=== PATIENT | female | born 1990 | race African-American/Black ===

== ENCOUNTER 2016-11-11 10:34 | Emergency (ER) | payer MEDICAID ==
[~2016-11-11] VITALS: Ht 157.5 cm; Wt 63.0 kg
[2016-11-11 13:05] VITALS: BP 111/48
== END 2016-11-11 15:52 | disposition home or self-care (01) ==
LOC: ER 10:34
DX: O20.8 Other hemorrhage in early pregnancy (principal); K59.00 Constipation, unspecified; Z3A.12 12 weeks gestation of pregnancy
CPT/HCPCS: 36415; 76801; 84702

== ENCOUNTER 2017-08-20 08:35 | Emergency (ER) | payer MEDICAID ==
[~2017-08-20] VITALS: Ht 157.5 cm; Wt 77.1 kg
[2017-08-20 09:16] LABS: Urine Bilirubin Negative (Negative); Urine Blood Negative /uL (Negative); Urine Color Yellow (Yellow); Urine Glucose Normal (Normal); Urine Ketone Negative (Negative); Urine Nitrite Negative (Negative); Urine RBC 2 /hpf (0 - 4); Urine Squamous Epithelial Cell FEW /hpf (<5); Urine Urobilinogen Normal (Negative)
[2017-08-20 09:33] LABS: Basophils # (auto) 0 uL; Basophils % (auto) 0.3 % (0.0-2.0); Eosinophils # (auto) 0.1 uL; Eosinophils % (auto) 1.3 % (0.0-7.0); Hemoglobin 14.6 g/dL (12.2-16.2); Lymphocytes # (auto) 2.3 uL; Monocytes # (auto) 0.5 uL; Neutrophils # (auto) 3.2 uL; White Blood Cell 6.1 10^3/uL (4.4-10.8)
[2017-08-20 09:35] LABS: Hematocrit 43.6 % (36.0-46.0); Lymphocytes % (auto) 37.7 % (10.0-50.0); Mean Corpuscular Hemoglobin 26.6 pg (28.0-32.0); Mean Corpuscular Hgb Conc. 33.4 g/dL (32.0-36.0); Mean Corpuscular Volume 79.6 fL (80.0-100.0); Mean Platelet Volume 7.4 fL (6.9-10.8); Monocytes % (auto) 7.6 % (0.0-12.0); Neutrophils % (auto) 53.1 % (37.0-80.0); Platelet Count (auto) 398 10^3/uL (140-450); Red Cell Distribution Width 15.9 % (11.8-14.3)
[2017-08-20] MEDS ORDERED: LORazepam 2MG/ML-1ML VIAL IV ONE (09:45)
[2017-08-20 09:59] LABS: Albumin 4.3 g/dL (3.4-5.0); Alkaline Phosphatase 89 U/L (45-117); Anion Gap 11 (5-15); Aspartate Aminotransferase 11 U/L (15-37); Bilirubin, Total 0.3 mg/dL (0.2-1.0); Blood Urea Nitrogen 12 mg/dL (7-18); Calcium 9.8 mg/dL (8.5-10.1); Carbon Dioxide 18 mmol/L (21-32); Chloride 104 mmol/L (98-107); GFR African American 103 mL/min; GFR Non-African American 85 mL/min; Glucose 120 mg/dL (74-106); Potassium 3.5 mmol/L (3.5-5.1); Sodium 133 mmol/L (136-145); Total Protein 9.2 g/dL (6.4-8.2)
[2017-08-20 11:05] LABS: Hypochromia Slight; Microcytosis Slight; Platelet Estimate Adequate
[2017-08-20 11:06] LABS: Tear Drop Cells FEW
[2017-08-20] MEDS ORDERED: cefTRIAXone 1GM/50ML D5W 50 ML IV ONE (11:45)
[2017-08-20 12:04] VITALS: BP 117/69
== END 2017-08-20 13:37 | disposition home or self-care (01) ==
LOC: ER 08:35 → EDUNIT# 08:35 → ER 13:37
DX: R07.9 Chest pain, unspecified (principal); F41.8 Other specified anxiety disorders; M54.12 Radiculopathy, cervical region; M62.838 Other muscle spasm
CPT/HCPCS: 36415; 71020; 72125; 80053; 80307; 81001; 81025; 83735; 84484; 84702; 85025; 93005; 94761; 96365; 96375; 99285; J0696; J2060

== ENCOUNTER 2021-04-08 13:16 | Emergency (ER) | payer MEDICAID ==
[~2021-04-08] VITALS: Ht 157.5 cm; Wt 81.6 kg
[2021-04-08 13:48] LABS: Basophils # (auto) 0.1 10 ^3/uL (0-0.2); Eosinophils # (auto) 0.1 10 ^3/uL (0-0.8); Lymphocytes # (auto) 2.1 10 ^3/uL (0.4-5.4); Mean Corpuscular Hemoglobin 22.1 pg (28.0-32.0); Monocytes # (auto) 0.4 10 ^3/uL (0-1.3); Nucleated Red Blood Cells % 0.1 %; White Blood Cell 7.7 10^3/uL (4.4-10.8)
[2021-04-08 13:49] LABS: Basophils % (auto) 1.6 % (0.0-2.0); Eosinophils % (auto) 1.5 % (0.0-7.0); Hemoglobin 11.2 g/dL (12.2-16.2); Lymphocytes % (auto) 27.7 % (10.0-50.0); Mean Corpuscular Volume 69.2 fL (80.0-100.0); Monocytes % (auto) 5.8 % (0.0-12.0); Neutrophils # (auto) 4.9 10 ^3/uL (1.6-8.6); Neutrophils % (auto) 63.4 % (37.0-80.0); Platelet Count (auto) 350 10^3/uL (140-450); Red Blood Cells 5.06 10^6/uL (4.0-5.20)
[2021-04-08 14:06] LABS: Albumin 3.5 g/dL (3.4-5.0); Anion Gap 7 (5-15); Blood Urea Nitrogen 7 mg/dL (7-18); Calcium 8.8 mg/dL (8.5-10.1); Carbon Dioxide 27 mmol/L (21-32); Chloride 102 mmol/L (98-107); Glucose 107 mg/dL (74-106); Potassium 3.3 mmol/L (3.5-5.1); Sodium 136 mmol/L (136-145)
[2021-04-08 14:10] LABS: Alanine Aminotransferase 20 U/L (13-56); Alkaline Phosphatase 60 U/L (45-117); Aspartate Aminotransferase 11 U/L (15-37); BUN/Creatinine Ratio 7.9; Bilirubin, Total 0.4 mg/dL (0.2-1.0); GFR African American 96 mL/min; GFR Non-African American 80 mL/min; Total Protein 7.9 g/dL (6.4-8.2)
[2021-04-08 16:11] VITALS: BP 133/87
[2021-04-08] MEDS ORDERED: KETOROLAC TROMETH 60MG/2ML VIAL IM ONE (16:30)
[2021-04-08] MEDS ORDERED: POTASSIUM CHL 20 Meq TABLET PO ONE (16:30)
== END 2021-04-08 17:07 | disposition home or self-care (01) ==
LOC: ER 13:16
DX: M54.12 Radiculopathy, cervical region (principal); M43.22 Fusion of spine, cervical region; R07.89 Other chest pain
CPT/HCPCS: 36415; 72040; 80053; 84484; 85025; 93005; 96372; 99285; J1885